=== PATIENT | female | born 1945 | race Caucasian/White ===

== ENCOUNTER → 2017-06-13 | Day surgery (SDC) | payer MEDICARE, OTHER ==
[~2017-06-13] MED LIST: Acetaminophen 500 MG Tab PO ONE; Bacitracin Oint 1 GM U/D Packet ONE; Bupivacaine 0.5% 50 ML MDV ONE; Bupivacaine 0.5%/EPINEPHrine 1:200,000 50 ML MDV ONE; Dexamethasone 4 MG/ML SDV ONE; Dextrose 5%-Lactated Ringers 1,000 ML IV SCH; Glycopyrrolate 0.2 MG/ML 5 ML MDV ONE; Lidocaine 1% with EPINEPHrine 1:100,000 50 ML MDV ONE; Meropenem 500 MG in Sodium Chloride 0.9% 50 ML IV ONE; Neostigmine Methylsulfate 1 MG/ML 5 ML Syringe ONE; Ondansetron 4 MG/2 ML SDV ONE; Propofol 200 MG/20 ML SDV ONE; Rocuronium 50 MG/5 ML Vial ONE; fentaNYL 250 MCG/5 ML SDV ONE
[2017-06-13 13:19] VITALS: BP 127/66
--- NOTE | 2017-06-21 15:28 | OR ---
DATE OF PROCEDURE: 06/13/2017 PREOPERATIVE DIAGNOSIS: Inflamed soft tissue mass, right perineum. POSTOPERATIVE DIAGNOSIS: Inflamed soft tissue mass, right perineum. OPERATIVE PROCEDURE: Excision of inflamed soft tissue mass, right perineum ([id number]). ANESTHESIA: General. SCREEN STRETCHER: Kaitlyn Lewis MS-3. INDICATION FOR PROCEDURE: This is a 71-year-old presenting with a soft tissue mass involving subcutaneous tissue of the right side of the perineal area. This recently had some drainage from it. The plan is to proceed with excision. As long as we stay out of any infected plane, we will likely close this. Potential risks including bleeding, infection, and possible recurrence of the process were reviewed, and the patient wishes to proceed. DETAILS OF PROCEDURE: The patient was taken to the operating room and placed in a supine position. After general endotracheal anesthesia was induced, she was converted to a lithotomy position, and the perineal area was prepped and draped. An oblique incision with an overlying ellipse was made through the skin and continued down through the subcutaneous tissue, and the mass was then sequentially removed in an intact manner maintaining a small amount of normal fat around the mass during this phase of dissection. This was then delivered from the field. It measured 1.6 cm in size and was confined to the subcutaneous tissue. The deeper soft tissues were then approximated with 2 layers of 4-0 Vicryl stitch deep and then a 5-0 Prolene skin stitch. Dressing was applied. The patient was taken to the recovery room in a satisfactory condition. David Lugo MD /[id number]
== END ==
LOC: JP.SDS 08:43
PROVIDERS: ATTEND Surgery
DX: L72.0 Epidermal cyst (principal); K21.9 Gastro-esophageal reflux disease without esophagitis; F41.9 Anxiety disorder, unspecified; F32.9 Major depressive disorder, single episode, unspecified; Z88.8 Allergy status to other drugs, medicaments and biological substances
CPT/HCPCS: 27047; 36415; 80053; 83735; 84100; 85027; 87070; 87075; 87077; 87205; 88304; A9270; J1100; J2185; J2405; J2704; J2710; J3010; J7042; J7050

== ENCOUNTER 2020-01-23 07:53 | Day surgery (SDC) | payer MEDICARE ==
[~2020-01-23 07:53] MED LIST changes: -Acetaminophen 500 MG Tab PO ONE; -Bacitracin Oint 1 GM U/D Packet ONE; -Bupivacaine 0.5% 50 ML MDV ONE; -Bupivacaine 0.5%/EPINEPHrine 1:200,000 50 ML MDV ONE; -Dexamethasone 4 MG/ML SDV ONE; -Dextrose 5%-Lactated Ringers 1,000 ML IV SCH; -Glycopyrrolate 0.2 MG/ML 5 ML MDV ONE; -Lidocaine 1% with EPINEPHrine 1:100,000 50 ML MDV ONE; -Meropenem 500 MG in Sodium Chloride 0.9% 50 ML IV ONE; +Midazolam 1 MG/ML 2 ML SDV ONE; -Neostigmine Methylsulfate 1 MG/ML 5 ML Syringe ONE; -Ondansetron 4 MG/2 ML SDV ONE; -Rocuronium 50 MG/5 ML Vial ONE; +fentaNYL 100 MCG/2 ML SDV ONE; -fentaNYL 250 MCG/5 ML SDV ONE
[2020-01-23] MEDS ORDERED: fentaNYL 100 MCG/2 ML SDV ONE (08:07)
[2020-01-23] MEDS ORDERED: Propofol 200 MG/20 ML SDV ONE (08:07)
[2020-01-23] MEDS ORDERED: Midazolam 1 MG/ML 2 ML SDV ONE (08:08)
[2020-01-23] MEDS ORDERED: Dextrose 5%-Lactated Ringers 1,000 ML IV SCH (08:30)
[2020-01-23 11:13] VITALS: BP 132/65; PULSE 66
--- NOTE | 2020-01-28 09:01 | OR ---
DATE OF PROCEDURE: 01/23/2020 SURGEON: David Lugo MD PREOPERATIVE DIAGNOSIS: Indication for screening colonoscopy. POSTOPERATIVE DIAGNOSIS: Indication for screening colonoscopy. OPERATIVE PROCEDURE: Flexible colonoscopy. ANESTHESIA: IV sedation. INDICATION FOR PROCEDURE: This is a 74-year-old female presenting for followup colonoscopy. She does have history of right colectomy secondary to polyp formation and also has history of lymphocytic colitis based on the previous biopsies. At present she does not have significant colorectal symptoms. Plan is to proceed with a flexible colonoscopy with biopsies and/or polypectomy as indicated. Potential risks of the procedure including bleeding and perforation were discussed, and the patient wishes to proceed. DETAILS OF PROCEDURE: The patient was taken to the operating room, placed in the left lateral decubitus position. IV sedation was administered, after which the digital rectal exam was performed and was unremarkable. Colonoscope was then passed into the rectum with retroflexion revealing uncomplicated hemorrhoidal columns. Scope was eventually passed to the level of the ileocolic anastomosis. To that level no additional abnormalities were noted. There was no areas of colitis, diverticular disease, or polyps or other signs of neoplasia. The scope was then withdrawn, the above findings were reconfirmed, and the procedure concluded. The patient was taken to the recovery room in satisfactory condition. The prep quality for this case overall was quite good with only a small amount of liquid stool being present. Next colonoscopy given the patient's history of colonic polyps should be in 5 years. David Lugo MD /[id number]
== END 2020-01-23 11:22 | disposition home or self-care (01) ==
LOC: JP.SDS 07:53
PROVIDERS: ATTEND Surgery
DX: Z12.11 Encounter for screening for malignant neoplasm of colon (principal); K64.8 Other hemorrhoids; I13.0 Hypertensive heart and chronic kidney disease with heart failure and stage 1 through stage 4 chronic kidney disease, or unspecified chronic kidney disease; I50.9 Heart failure, unspecified; N18.9 Chronic kidney disease, unspecified; E11.22 Type 2 diabetes mellitus with diabetic chronic kidney disease; Z86.010 Personal history of colon polyps; Z98.0 Intestinal bypass and anastomosis status; Z87.19 Personal history of other diseases of the digestive system; Z88.8 Allergy status to other drugs, medicaments and biological substances
CPT/HCPCS: G0105; J2250; J2704; J3010; J7121

== ENCOUNTER 2023-01-22 16:57 | Emergency (ER) | payer MEDICARE ==
[2023-01-22 17:31] VITALS: PULSE 82
[2023-01-22 18:17] LABS: BASOPHILS ABSOLUTE AUTO 0.04 K/uL (0.00-0.10); BASOPHILS PERCENT AUTO 0.7 % (0.1-1.3); EOSINOPHILS ABSOLUTE AUTO 0.13 K/uL (0.00-0.40); EOSINOPHILS PERCENT AUTO 2.2 % (0.0-5.4); HEMATOCRIT 39.8 % (34.3-46.0); HEMOGLOBIN 13.7 g/dL (11.2-15.5); IMMATURE GRAN ABSOLUTE AUTO 0.01 K/uL (0.00-0.23); IMMATURE GRAN PERCENT AUTO 0.2 % (0.0-0.7); LYMPHOCYTES ABSOLUTE AUTO 1.57 K/uL (0.8-3.3); LYMPHOCYTES PERCENT AUTO 26.3 % (11.4-47.7); MEAN CORPUSCULAR HEMOGLOBIN 30.3 pg (31.6-35.5); MEAN CORPUSCULAR HGB CONC 34.4 g/dL (31.6-35.5); MEAN CORPUSCULAR VOLUME 88.1 fL (81.4-99.0); MONOCYTES ABSOLUTE AUTO 0.81 K/uL (0.20-0.90); MONOCYTES PERCENT AUTO 13.6 % (3.3-12.6); NEUTROPHILS ABSOLUTE AUTO 3.41 K/uL (1.0-7.6); PLATELET COUNT,PLT 250 K/uL (130-375); RED BLOOD CELL COUNT 4.52 M/uL (3.77-5.24)
[2023-01-22 18:26] VITALS: BP 155/84
[2023-01-22 18:34] LABS: ANION GAP 13.8 mmol/L (5.0-14.0); BLOOD UREA NITROGEN,BUN 13 mg/dL (7-18); C-REACTIVE PROTEIN 0.05 mg/dL (0.0-0.3); CALCIUM 8.8 mg/dL (8.5-10.1); CARBON DIOXIDE,CO2 23 mmol/L (21-32); CHLORIDE,CL 101 mmol/L (100-108); CREATININE 1.3 mg/dL (0.6-1.0); ESTIMATED GFR 42 mL/min (>60); GLUCOSE RANDOM 77 mg/dL (74-106); POTASSIUM,K 3.8 mmol/L (3.6-5.2); SODIUM,NA 134 mmol/L (140-148)
[2023-01-22 18:49] LABS: CORONAVIRUS COVID-19 NAA NEGATIVE (NEGATIVE); INFLUENZA A NAA NEGATIVE (NEGATIVE); INFLUENZA B NAA NEGATIVE (NEGATIVE); RESPIRATORY SYNCYTIAL VIR NAA NEGATIVE (NEGATIVE)
== END 2023-01-22 19:05 | disposition home or self-care (01) ==
LOC: JP.ED 16:57
DX: J40 Bronchitis, not specified as acute or chronic (principal); E66.9 Obesity, unspecified; Z68.25 Body mass index [BMI] 25.0-25.9, adult; Z20.822 Contact with and (suspected) exposure to COVID-19; Z88.5 Allergy status to narcotic agent; Z88.6 Allergy status to analgesic agent; Z88.8 Allergy status to other drugs, medicaments and biological substances; Z79.899 Other long term (current) drug therapy
CPT/HCPCS: 0241U; 36415; 71046; 80048; 85025; 86140; 99284

== ENCOUNTER 2023-06-25 11:59 | Emergency (ER) | payer MEDICARE ==
[2023-06-25 12:59] LABS: CORONAVIRUS COVID-19 NAA NEGATIVE (NEGATIVE); INFLUENZA A NAA POSITIVE (NEGATIVE); INFLUENZA B NAA NEGATIVE (NEGATIVE); RESPIRATORY SYNCYTIAL VIR NAA NEGATIVE (NEGATIVE)
[2023-06-25] MEDS: Codeine/guaiFENesin 10-100 MG/5 ML Syrup 5 ML Cup PO ONE (13:15)
[2023-06-25 13:23] LABS: BASOPHILS ABSOLUTE AUTO 0.03 K/uL (0.00-0.10); BASOPHILS PERCENT AUTO 0.5 % (0.1-1.3); EOSINOPHILS ABSOLUTE AUTO 0.13 K/uL (0.00-0.40); EOSINOPHILS PERCENT AUTO 2.1 % (0.0-5.4); HEMATOCRIT 36.4 % (34.3-46.0); HEMOGLOBIN 12.4 g/dL (11.2-15.5); IMMATURE GRAN PERCENT AUTO 0.3 % (0.0-0.7); LYMPHOCYTES PERCENT AUTO 25.5 % (11.4-47.7); MEAN CORPUSCULAR HEMOGLOBIN 30.5 pg (31.6-35.5); MEAN CORPUSCULAR HGB CONC 34.1 g/dL (31.6-35.5); MEAN CORPUSCULAR VOLUME 89.4 fL (81.4-99.0); MONOCYTES PERCENT AUTO 12.7 % (3.3-12.6); NEUTROPHILS PERCENT AUTO 58.9 % (40.0-78.1); PLATELET COUNT,PLT 310 K/uL (130-375); RED BLOOD CELL COUNT 4.07 M/uL (3.77-5.24); WHITE BLOOD CELL COUNT,WBC 6.3 K/uL (3.2-11.0)
[2023-06-25 13:24] LABS: IMMATURE GRAN ABSOLUTE AUTO 0.02 K/uL (0.00-0.23)
[2023-06-25 13:36] VITALS: BP 140/55; PULSE 79
[2023-06-25 13:39] LABS: ANION GAP 11.4 mmol/L (5.0-14.0); CALCIUM 9.4 mg/dL (8.5-10.1); CREATININE 1.1 mg/dL (0.6-1.0); EST CRCL DRUG DOSING (CG) 41.65 mL/min; POTASSIUM,K 4.2 mmol/L (3.6-5.2)
== END 2023-06-25 14:06 | disposition home or self-care (01) ==
LOC: JP.ED 11:59
DX: J10.1 Influenza due to other identified influenza virus with other respiratory manifestations (principal); K21.9 Gastro-esophageal reflux disease without esophagitis; E66.9 Obesity, unspecified; Z88.6 Allergy status to analgesic agent; Z88.8 Allergy status to other drugs, medicaments and biological substances; Z86.19 Personal history of other infectious and parasitic diseases; Z68.29 Body mass index [BMI] 29.0-29.9, adult
CPT/HCPCS: 0241U; 36415; 71046; 80048; 83605; 84484; 85025; 99285; A9270

== ENCOUNTER 2024-06-05 04:43 | Inpatient (IN) | payer MEDICARE, OTHER ==
[2024-06-05 05:32] LABS: BASOPHILS ABSOLUTE AUTO 0.02 K/uL (0.00-0.10); BASOPHILS PERCENT AUTO 0.2 % (0.1-1.3); EOSINOPHILS ABSOLUTE AUTO 0.08 K/uL (0.00-0.40); EOSINOPHILS PERCENT AUTO 0.8 % (0.0-5.4); HEMATOCRIT 37.3 % (34.3-46.0); HEMOGLOBIN 13.1 g/dL (11.2-15.5); IMMATURE GRAN ABSOLUTE AUTO 0.02 K/uL (0.00-0.23); IMMATURE GRAN PERCENT AUTO 0.2 % (0.0-0.7); LYMPHOCYTES ABSOLUTE AUTO 0.99 K/uL (0.8-3.3); LYMPHOCYTES PERCENT AUTO 10.2 % (11.4-47.7); MEAN CORPUSCULAR HEMOGLOBIN 31.4 pg (31.6-35.5); MEAN CORPUSCULAR HGB CONC 35.1 g/dL (31.6-35.5); MEAN CORPUSCULAR VOLUME 89.4 fL (81.4-99.0); MONOCYTES ABSOLUTE AUTO 0.99 K/uL (0.20-0.90); MONOCYTES PERCENT AUTO 10.2 % (3.3-12.6); NEUTROPHILS ABSOLUTE AUTO 7.64 K/uL (1.0-7.6); NEUTROPHILS PERCENT AUTO 78.4 % (40.0-78.1); PLATELET COUNT,PLT 209 K/uL (130-375); RED BLOOD CELL COUNT 4.17 M/uL (3.77-5.24); WHITE BLOOD CELL COUNT,WBC 9.7 K/uL (3.2-11.0)
[2024-06-05 05:59] LABS: ANION GAP 11.2 mmol/L (5.0-14.0); CALCIUM 9.2 mg/dL (8.5-10.1); CREATININE 1.1 mg/dL (0.6-1.0); EST CRCL DRUG DOSING (CG) 42.52 mL/min; POTASSIUM,K 4.2 mmol/L (3.6-5.2)
[2024-06-05] MEDS: fentaNYL 50 MCG/ML SDV IVPUSH ONE (06:00)
[2024-06-05] MEDS: Sodium Chloride 0.9% 1,000 ML IV SCH ×3 (07:39→19:40)
[2024-06-05] MEDS: HYDROmorphone 0.5 MG/0.5 ML Syringe IVPUSH ONE (07:48)
[2024-06-05] MEDS ORDERED: Sodium Chloride 0.9% 10 ML Syringe FLUSH PRN (11:36)
[2024-06-05] MEDS ORDERED: Ondansetron 4 MG/2 ML SDV IV PRN (11:36)
[2024-06-05] MEDS ORDERED: Polyethylene Glycol 3350 Powder 17 GM Packet PO PRN (11:36)
[2024-06-05] MEDS ORDERED: Naloxone 0.4 MG/ML SDV IVPUSH PRN (11:36)
[2024-06-05] MEDS ORDERED: HYDROmorphone 0.5 MG/0.5 ML Syringe IVPUSH PRN (11:36)
[2024-06-05] MEDS ORDERED: Acetaminophen 325 MG Tab PO PRN (11:36)
[2024-06-05] MEDS: Enoxaparin 40 MG/0.4 ML Syringe SUBCUT SCH (14:20)
[2024-06-05] MEDS: oxyCODONE 5 MG Tab PO PRN (18:34)
[2024-06-05] MEDS: Dental Adhesive 1 Tube DENT ONE (20:13)
[2024-06-05] MEDS: Oxybutynin 5 MG Tab PO SCH (20:19)
[2024-06-05] MEDS: traZODone 50 MG Tab PO SCH (20:19)
[2024-06-06 05:53] LABS: HEMATOCRIT 30.9 % (34.3-46.0); HEMOGLOBIN 10.2 g/dL (11.2-15.5); MEAN CORPUSCULAR HEMOGLOBIN 31.1 pg (31.6-35.5); MEAN CORPUSCULAR VOLUME 94.2 fL (81.4-99.0); RED BLOOD CELL COUNT 3.28 M/uL (3.77-5.24); WHITE BLOOD CELL COUNT,WBC 4.5 K/uL (3.2-11.0)
[2024-06-06 06:28] LABS: ANION GAP 9.1 mmol/L (5.0-14.0); CALCIUM 8.2 mg/dL (8.5-10.1); CREATININE 1.2 mg/dL (0.6-1.0); EST CRCL DRUG DOSING (CG) 39.13 mL/min; MAGNESIUM 1.8 mg/dL (1.8-2.4); POTASSIUM,K 5.1 mmol/L (3.6-5.2)
[2024-06-06] MEDS: Pantoprazole 40 MG Tab.CR PO SCH (07:13)
[2024-06-06] MEDS: Ferrous Sulfate 325 MG Tab PO SCH (08:29)
[2024-06-06] MEDS: buPROPion 150 MG Tab.ER PO SCH (08:29)
[2024-06-06] MEDS: FLUoxetine 20 MG Cap PO SCH (08:29)
[2024-06-07 06:21] LABS: ANION GAP 11.1 mmol/L (5.0-14.0); CALCIUM 8.3 mg/dL (8.5-10.1); CREATININE 1.1 mg/dL (0.6-1.0); EST CRCL DRUG DOSING (CG) 42.69 mL/min; POTASSIUM,K 5.1 mmol/L (3.6-5.2)
[2024-06-07] MEDS: Rosuvastatin 5 MG Tab PO SCH (09:03)
[2024-06-07 11:47] VITALS: BP 136/58; PULSE 72
== END 2024-06-07 14:30 | disposition home health service (06) | DRG 565 ==
LOC: JP.ED 04:43 → JP.ICU 10:51
PROVIDERS: ADMIT Hospitalist; ATTEND Hospitalist
DX: T79.6XXA Traumatic ischemia of muscle, initial encounter (principal); E87.1 Hypo-osmolality and hyponatremia; H54.7 Unspecified visual loss; S70.02XA Contusion of left hip, initial encounter; K80.20 Calculus of gallbladder without cholecystitis without obstruction; M54.9 Dorsalgia, unspecified; Z68.31 Body mass index [BMI] 31.0-31.9, adult; G89.29 Other chronic pain; F41.9 Anxiety disorder, unspecified; F32.A Depression, unspecified; K21.9 Gastro-esophageal reflux disease without esophagitis; Z90.89 Acquired absence of other organs; K59.09 Other constipation; D64.9 Anemia, unspecified; E66.9 Obesity, unspecified; Z90.49 Acquired absence of other specified parts of digestive tract; Z88.5 Allergy status to narcotic agent; N18.31 Chronic kidney disease, stage 3a; Z96.659 Presence of unspecified artificial knee joint; W19.XXXA Unspecified fall, initial encounter; Y92.019 Unspecified place in single-family (private) house as the place of occurrence of the external cause; Z90.710 Acquired absence of both cervix and uterus; Z79.01 Long term (current) use of anticoagulants; Z88.8 Allergy status to other drugs, medicaments and biological substances; Z79.899 Other long term (current) drug therapy; Y92.009 Unspecified place in unspecified non-institutional (private) residence as the place of occurrence of the external cause
CPT/HCPCS: 36415; 73502-26-LT; 73502-LT; 73700-LT; 76377; 80048; 82550; 83735; 85025; 85027; 96361; 96374; 96375; 97161-GP; 97530-GP; 99222; 99231; 99238; 99285-25; A9270-GY; J1650; J3010